=== PATIENT | male | born 1940 | race Caucasian/White ===

== ENCOUNTER 2017-04-13 07:34 | Outpatient (CLI) | payer OTHER | END 2017-04-13 07:42 | disposition home or self-care (01) | LOC: NUCLEAR 07:34 | DX: I25.10 Atherosclerotic heart disease of native coronary artery without angina pectoris (principal) | CPT/HCPCS: 78452; 93017; A9500; J0153 ==

== ENCOUNTER → 2017-06-16 | Emergency (ER) | payer OTHER ==
[~2017-06-16] VITALS: Ht 152.4 cm; Wt 69.9 kg
[~2017-06-16] MED LIST: ACTOS15 MG; AMLODIPINE BESYL5 MG; BACTRIM 400-801 EACH PO; COZAAR100 MG; COZAAR25 MG; GLIPIZIDE5 GM; GLUCOTROL10 MG; IRO-PLEX LIQUI120 ML; NEURAPTINE30 ML; NITROFURANTOIN100 MG; NORVASC5 MG; REXULTI0.25 MG
== END | disposition home or self-care (01) ==
LOC: ER 08:33
DX: N39.0 Urinary tract infection, site not specified (principal); R31.0 Gross hematuria; R33.8 Other retention of urine

== ENCOUNTER 2018-04-26 08:37 | Emergency (ER) | payer OTHER ==
[~2018-04-26] VITALS: Ht 180.3 cm; Wt 61.2 kg
[2018-04-26] MEDS ORDERED: [UNRECOGNIZED DRUG - OTHER] (09:03)
[2018-04-26] MEDS ORDERED: DONEPEZIL HCL OD5 MG (09:03)
[2018-04-26] MEDS ORDERED: ZESTRIL5 MG (09:03)
[2018-04-26] MEDS ORDERED: CHILDREN'S ASPI81 MG (09:04)
[2018-04-26] MEDS ORDERED: IRON 100 PLUS1 EACH (09:04)
[2018-04-26] MEDS ORDERED: DULCOLAX5 MG (09:05)
[2018-04-26] MEDS ORDERED: NEURIN (09:05)
[2018-04-26] MEDS ORDERED: VITAMIN D32000 UNIT (09:05)
== END 2018-04-26 11:22 | disposition home or self-care (01) ==
LOC: ER 08:37
DX: R31.0 Gross hematuria (principal)

== ENCOUNTER 2018-05-03 09:09 | Outpatient (CLI) | payer OTHER ==
[~2018-05-03 09:09] MED LIST changes: +CHILDREN'S ASPI81 MG; +DONEPEZIL HCL OD5 MG; +DULCOLAX5 MG; +IRON 100 PLUS1 EACH; +NEURIN; +VITAMIN D32000 UNIT; +ZESTRIL5 MG; +[UNRECOGNIZED DRUG - OTHER]
== END 2018-05-03 11:32 | disposition home or self-care (01) ==
LOC: RAD 09:09
DX: C67.8 Malignant neoplasm of overlapping sites of bladder (principal); N20.0 Calculus of kidney; R31.29 Other microscopic hematuria

== ENCOUNTER 2018-05-26 09:48 | Outpatient (CLI) | payer OTHER | END 2018-05-26 17:00 | disposition home or self-care (01) | LOC: TOM 09:48 | DX: G31.09 Other frontotemporal neurocognitive disorder (principal) ==

== ENCOUNTER 2018-05-26 13:26 | Inpatient (IN) | payer OTHER ==
[~2018-05-26] VITALS: Ht 182.9 cm; Wt 68.0 kg
--- NOTE | 2018-05-26 14:01 | NUR ---
SE RECIBE PTE ALERTA Y ORIENTADO X3 ,REFERIDO POR LA HEMATOLOGA JERICHO GAMBLE,ES REFERIDO PARA QUE EL BETTY LO ATIENDA POR LA MARY DE ER,EL P[TE LEWIS TENIOD SANGRADO EN LA ORINA ,TIENE CANCER E LA VEJIGA.
--- NOTE | 2018-05-26 15:31 | NUR ---
PACIENTE ALERTA Y ORIENTADO POR LISA ESFERAS EN COMPANIA DE FAMILIAR. PACIENTE ES ORIENTADO SOBRE PROCEDIMIENTO Y TX, REFIERE ENTENDER. SE EXTRAE MUESTRAS DE LABORATORIO CON MEDIDAS ASEPTICAS Y SE COLOCA IVF'S DALE ORDEN MEDICA,
== END 2018-05-28 10:22 | disposition home or self-care (01) | DRG 670 ==
LOC: ER 13:26 → SURH 23:01
PROVIDERS: ADMIT Urology
PROC: 0TBB8ZZ Excision of Bladder, Via Natural or Artificial Opening Endoscopic (ICD-10-PCS; principal; 2018-05-26)
DX: R31.0 Gross hematuria (principal); C67.9 Malignant neoplasm of bladder, unspecified; D64.89 Other specified anemias

== ENCOUNTER → 2018-07-25 | Outpatient (CLI) | payer OTHER | END | disposition home or self-care (01) | LOC: NUCLEAR 10:56 | DX: I87.2 Venous insufficiency (chronic) (peripheral) (principal); I73.9 Peripheral vascular disease, unspecified ==

== ENCOUNTER → 2018-07-26 | Outpatient (CLI) | payer OTHER | END | disposition home or self-care (01) | LOC: NUCLEAR 09:00 | DX: I73.9 Peripheral vascular disease, unspecified (principal); I87.2 Venous insufficiency (chronic) (peripheral) ==

== ENCOUNTER → 2018-09-05 09:17 | Outpatient (CLI) | payer OTHER | END | disposition home or self-care (01) | LOC: LAB 09:17 | DX: D50.0 Iron deficiency anemia secondary to blood loss (chronic) (principal); D63.1 Anemia in chronic kidney disease; C67.9 Malignant neoplasm of bladder, unspecified; N18.4 Chronic kidney disease, stage 4 (severe); G30.1 Alzheimer's disease with late onset; E11.22 Type 2 diabetes mellitus with diabetic chronic kidney disease; G47.33 Obstructive sleep apnea (adult) (pediatric); D51.8 Other vitamin B12 deficiency anemias ==